=== PATIENT | female | born 1995 | race Asian ===

== ENCOUNTER 2020-01-08 22:27 | Emergency (ER) | payer OTHER ==
[~2020-01-08] VITALS: Ht 165.1 cm; Wt 59.0 kg
[2020-01-08 22:38] VITALS: BP 115/60
[2020-01-08] MEDS ORDERED: ACETAMINOPHEN 325MG TABLET PO ONE (23:15)
== END 2020-01-09 00:03 | disposition home or self-care (01) ==
LOC: ER 22:27
DX: T24.101A Burn of first degree of unspecified site of right lower limb, except ankle and foot, initial encounter (principal); T31.0 Burns involving less than 10% of body surface; X08.8XXA Exposure to other specified smoke, fire and flames, initial encounter; Y93.89 Activity, other specified; Y92.89 Other specified places as the place of occurrence of the external cause; Y99.8 Other external cause status
CPT/HCPCS: 99284